=== PATIENT | female | born 1985 | race Caucasian/White ===

== ENCOUNTER → 2025-06-18 | Outpatient (CLI) | payer BC, SELFPAY ==
--- OUTSIDE RECORDS SUMMARY | 2025-06-18 17:11 | XMS RPT_ITS | CCD ---
Author Organization [facility] Care Team Providers Care District Wildlife Manager Name Role Phone Abdirahman Recinos Unavailable Unavailable Abdirahman Recinos Unavailable Abdirahman Recinos Unavailable Abdirahman Recinos Primary Care Provider Abdirahman Recinos Primary Care Provider CLAUDINE BAILEY Attending Unavailable CLAUDINE BAILEY Referring Unavailable ABDIRAHMAN RECINOS Primary Care Unavailable Abdirahman Recinos MD Primary Care Provider Alexus Ontiveros Attending Unavailabl e Care Physician, No Primary Referring Unava ilable Care Physician, No Primary Primary Care Unava ilable Medications Current Medications Medication Drug Class(es) Dates Sig (Normalized) Sig (Original) cholecalciferol, vitamin D3, (VITAMIN D3 ORAL) (1 source) cholecalciferol, vitamin D3, (VITAMIN D3 ORAL) Vitamin D3 0 Active docosahexaenoic acid/epa (FISH OIL ORAL) (1 source) docosahexaenoic acid/epa (FISH OIL ORAL) Fish Oil 0 Active nitrofurantoin, macrocrystals 25 mg / nitrofurantoin, monohydrate 75 mg oral capsule (1 source) Nitrofuran Antibacterial Start: 04-10-2024 End: 04-15-2024 take 1 capsule by mouth twice daily nitrofurantoin monohydrate and macrocrystal (MACROBID) 100 mg capsule Take 1 capsule by mouth two times a day for 5 days. 10 capsule 0 04/10/2024 04/15/2024 Active Vit B Comp and C-Vit E-FA-Kaylie-Zn 0.4 mg tab (1 source) take 1 tablet by mouth once daily Vit B Comp and C-Vit E-FA-Kaylie-Zn 0.4 mg tab Take 1 tablet by mouth once daily. 0 Active Completed/Discontinued Medications Medication Drug Class(es) Dates Sig (Normalized) Sig (Original) drospirenone / Ethinyl Estradiol (3 sources) Progestin, Estrogen Start: 03-02-2022 End: 04-10-2024 take 1 tablet by mouth once daily Drospirenone-Ethiny l Estradiol (VESTURA, 28,) 3-0.02 mg per tablet Indications: Encounter for surveillance of contraceptive pills TAKE 1 TABLET BY MOUTH EVERY DAY CONTINOUSLY DONT TAKE PLACEBOS 112 tablet 4 03/02/2022 04/10/2024 Discontinued (Other) Start: 03-02-2022 take 1 tablet by nitesh th once daily Drospirenone-Ethinyl Estradiol (VESTURA, 28,) 3-0.02 mg per tablet Indications: Encounter for surveillance of contraceptive pills TAKE 1 TABLET BY MOUTH EVERY DAY CONTINOUSLY DONT TAKE PLACEBOS 112 tablet 4 03/02/2022 Active Start: 02-24-2021 End: 03-02-2022 take 1 tablet by mouth once daily Drospirenone-Ethinyl Estradiol (VESTURA, 28,) 3-0.02 mg per tablet Indications: Encounter for surveillance of contraceptive pills TAKE 1 TABLET BY MOUTH EVERY DAY CONTINOUSLY DONT TAKE PLACEBOS 112 tablet 4 02/24/2021 03/02/2022 Discontinued Comment on above: TAKE 1 TABLET BY NITESH TH EVERY DAY CONTINOUSLY DONT TAKE PLACEBOS Problems Problem Classification Problem Date Documented Date Episodic/Chronic Abdominal pain (2 sources) Upper abdominal pain, unspecified; Translations: [Upper abdominal pain, unspecified] Onset: 07-16-2018 Episodic Biliary tract disease (2 sources) Calculus of gallbladder without cholecystitis without obstruction; Translations: [Calculus of gallbladder w/o cholecystitis w/o obstruction] Onset: 07-16-2018 Episodic Contraceptive and procreative management (1 source) Oral contraception; Translations: [Encounter for surveillance of contraceptive pills] Episodic Genitourinary symptoms and ill-defined conditions (1 source) Urinary symptoms ; Translations: [Unspecified symptoms and signs involving the genitourinary system] 04-10-2024 Episodic Mood disorders (3 sources) Premenstrual dysphoric disorder; Translations: [Premenstrual dysphoric disorder] Onset: 05-08-2024 Chronic Other endocrine disorders (2 sources) Ovarian dysfunction, unspecified; Translations: [Ovarian dysfunction, unspecified] Onset: 05-08-2024 Chronic Other endocrine disorders (1 source) Disorder of endocrine ovary; Translations: [Ovarian dysfunction, unspecified] 05-08-2024 Chronic Other screening for suspected conditions (not mental disorders or infectious disease) (2 sources) Cancer cervix screening status; Translations: [Encounter for screening for malignant neoplasm of cervix] Episodic Thyroid disorders (3 sources) Hypothyroidism, unspecified; Translations: [Hypothyroidism] Onset: 05-08-2024 Chronic Results Test Name Value Interpretation Reference Range Facility Testo,Free/Total-Femaleon Sex hormone binding globulin [Moles/Vol] 63 nmol/L 25 - 122 nmol/L [facility] Comment on above: REFERENCE INTERVAL: Sex Hormone Binding Globulin Access complete set of age- and/or gender-specific reference intervals for this test in the [facility] Test Directory (Hively). Testosterone [Mass/Vol] 20 ng/dL 9 - 55 ng/dL [facility] Comment on above: REFERENCE INTERVAL: Testosterone by Field Marketing Associate Females Premenopausal 9-55 ng/dL Postmenopausal 5-32 ng/dL INTERPRETIVE INFORMATION: Testosterone by Field Marketing Associate Free or bioavailable testosterone measurements may provide supportive information. For individuals on testosterone-suppressing hormone therapies (e.g., antiandrogens or estrogens), refer to cisgender female reference intervals. For a complete set of all established reference intervals, refer to TrackR.Hively/Tests/Pub/[id number]. This test was developed and its performance characteristics determined by [facility]. It has not been cleared or approved by the US Food and Drug Administration. This test was performed in a CLIA certified laboratory and is intended for clinical purposes. Testosterone Free DL <= 1.0 ng/dL [Mass/Vol] 2.2 pg/mL 1.3 - 9.2 pg/mL [facility] Comment on above: REFERENCE INTERVAL: Testosterone, Free by Field Marketing Associate Females Postmenopausal: 0.6 - 3.8 pg/mL INTERPRETIVE INFORMATION: Testosterone, Free by Field Marketing Associate Free testosterone concentration is calculated using total testosterone (measured by mass spectrometry) and the binding constant of testosterone and sex hormone-binding globulin (SHBG). For individuals on testosterone-suppressing hormone therapies (e.g., antiandrogens or estrogens), refer to cisgender female reference intervals. For a complete set of all established reference intervals, refer to ltd.Hively/Tests/Pub/[id number]. This test was developed and its performance characteristics determined by [facility]. It has not been cleared or approved by the US Food and Drug Administration. This test was performed in a CLIA certified laboratory and is intended for clinical purposes. Performed By: [facility] [address] [place], [place] [id number] Duck Bill Operator: Martell Flores MD, PhD CLIA Number: [id number] [facility] DHEA-sulfateon 05-10-2024 DHEA-S [Mass/Vol] 196 ug/dL 61 - 337 ug/dL [facility] Comment on above: REFERENCE INTERVAL: DHEAS Access complete set of age- and/or gender-specific reference intervals for this test in the [facility] [employer] [facility] Test Directory (Hively). Performed By: [facility] [address] [place] [address] Duck Bill Operator: Martell Flores MD, PhD CLIA Number: [id number] [facility] DHEA-SULFATEon 05-08-2024 DEHYDROEPIANDROSTERONE SULFATE (DHEA-S) (UG/DL) IN SER/ 196 ug/dL Normal 61-337 [facility] Comment on above: Result Comment: REFE RENCE INTERVAL: DHEAS Access complete set of age- and/or gender-specific reference intervals for this test in the [facility] Test Directory (Hively). Performed By: [facility] [address] [place], [place] [id number] Duck Bill Operator: Martell Flores MD, PhD CLIA Number: [id number] Performed By: #### L [id number], [id number] #### [facility] ([facility]) [address] [place] [id number] [facility] FREE T4on 05-08-2024 Free T4 [Mass/Vol] 1.18 ng/dL Normal 0.78-2.19 [facility] Comment on above: Performed By: #### L [id number], [id number] #### Pressure Tester Operator: SANDRA PARRA ([id number]) [facility] ([facility]) [address] [place], [place] [id number] Free T3 [Mass/Vol]on Interpretation and review of laboratory results Normal [facility] Free T4 [Mass/Vol]on Free T4 Dialysis [Mass/Vol] 1.18 ng/dL 0.78 - 2.19 ng/dL [facility] Interpretation and review of laboratory results Normal [facility] No Panel Informationon 05-08 [facility] PROGESTERONEon 05-08-2024 PROGESTERONE 10.5 ng/mL Normal [facility] Comment on above: Result Comment: ALEXA Vasquez COMMENTS: *Females-Ovulatory* Follicular: 0.1 - 2.0 Periovulatory: 0.4 - 4.5 Mid Luteal: 5.2 - 22.7 Luteal: 1.4 - 16.6 * Females* 1st Trimester (4-12 weeks gestation): 6.6 - 40.3 2nd Trimester (13-24 weeks gestation): 9.7 - 62.3 3rd Trimester (25-36 weeks gestation): 24.5 - 334.0 Post Menopausal Females: 0.2 - 1.0 Normal Males: 0.2 - 1.5 Performed By: #### L [id number], [id number], [id number] #### Pressure Tester Operator: MARY ZAPATA ([id number]) [facility] ([facility]) [address] [place] [address] Progesteroneon 05-08-2024 Progesterone [Mass/Vol] 10.5 ng/mL [facility] *Females-Ovulatory* Follicular: 0.1 - 2.0 Periovulatory: 0.4 - 4.5 Mid Luteal: 5.2 - 22.7 Luteal: 1.4 - 16.6 * Females* 1st Trimester (4-12 weeks gestation): 6.6 - 40.3 2nd Trimester (13-24 weeks gestation): 9.7 - 62.3 3rd Trimester (25-36 weeks gestation): 24.5 - 334.0 Post Menopausal Females: 0.2 - 1.0 Normal Males: 0.2 - 1.5 [facility] T3on 05-08-2024 T3 [Mass/Vol] 146 ng/dL 97 - 169 ng/dL [facility] T3 (THYROID HORMONE)on 05-08 T3, TOTAL 146 ng/dL Normal 97-169 [facility] Comment on above: Performed By: #### Percy [id number], [id number], [id number] #### Pressure Tester Operator: MARY ZAPATA ([id number]) [facility] ([facility]) [address] T3 FREEon 05-08-2024 Free T3 [Mass/Vol] 4.37 pg/mL Normal 2.77-5.27 [facility] Comment on above: Performed By: #### L [id number], [id number], [id number] #### Pressure Tester Operator: MARY ZAPATA ([id number]) [facility] ([facility] [address] T3 [Mass/Vol]on 05-08-2024 Interpretation and review of laboratory results Normal [facility] T3, freeon 05-08-2024 Free T3 [Mass/Vol] 4.37 pg/mL 2.77 - 5. 27 pg/mL [facility] TESTOSTERONE, FREE/TOTAL BY COOKER LOADER (SENDOUT)on 05-08-2024 SEX HORMONE BINDING GLOBULIN 63 nmol/L Normal 25-122 [facility] Comment on above: Result Comment: REFE RENCE INTERVAL: Sex Hormone Binding Globulin Access complete set of age- and/or gender-specific reference intervals for this test in the [facility] Test Directory (Hively). Performed By: #### L [id number], [id number] #### [facility] ([facility]) [address] [place] [phone] [facility] TESTOSTERONE BY COOKER LOADER 20 ng/dL Normal 9-55 [facility] Comment on above: Result Comment: REFE RENCE INTERVAL: Testosterone by Field Marketing Associate Females Premenopausal 9-55 ng/dL Postmenopausal 5-32 ng/dL INTERPRETIVE INFORMATION: Testosterone by Field Marketing Associate Free or bioavailable testosterone measurements may provide supportive information. For individuals on testosterone-suppressing hormone therapies (e.g., antiandrogens or estrogens), refer to cisgender female reference intervals. For a complete set of all established reference intervals, refer to ltd.Hively/Tests/Pub/[id number]. This test was developed and its performance characteristics determined by [facility]. It has not been cleared or approved by the US Food and Drug Administration. This test was performed in a CLIA certified laboratory and is intended for clinical purposes. Performed By: #### L [id number], [id number] #### [facility] ([facility]) [address] [place] [address] TESTOSTERONE, FREE BY COOKER LOADER 2.2 pg/mL Normal 1.3-9.2 [facility] Comment on above: Result Comment: REFE RENCE INTERVAL: Testosterone, Free by Field Marketing Associate Females Postmenopausal: 0.6 - 3.8 pg/mL INTERPRETIVE INFORMATION: Testosterone, Free by Field Marketing Associate Free testosterone concentration is calculated using total testosterone (measured by mass spectrometry) and the binding constant of testosterone and sex hormone-binding globulin (SHBG). For individuals on testosterone-suppressing hormone therapies (e.g., antiandrogens or estrogens), refer to cisgender female reference intervals. For a complete set of all established reference intervals, refer to TrackR.Hively/Tests/Pub/[id number]. This test was developed and its performance characteristics determined by [facility]. It has not been cleared or approved by the US Food and Drug Administration. This test was performed in a CLIA certified laboratory and is intended for clinical purposes. Performed By: [facility] [address] [place] [address] Duck Bill Operator: Martell Flores MD, PhD CLIA Number: [id number] Performed By: #### L [id number], [id number] #### [facility] ([facility]) [address] [place] [address] THYROID STIMULATING HORMONEo n 05-08-2024 THYROID STIMULATING HORMONE 1.508 uIU/mL Normal 0.465-4.680 [facility] Comment on above: Performed By: #### L [id number], [id number] #### Pressure Tester Operator: SANDRA PARRA ([id number]) [facility] [address] [place] [address] TSHon 05-08-2024 TSH Qn 1.508 m[IU]/L [facility] h TSH Qnon 05-08-2024 Interpretation and review of laboratory results Normal [facility] UA DIP, URINE (POC)on 2023 BILIRUBIN UA (POCT) Negative Negative [facility] CLARITY UA (POCT) Cloudy [facility] COLOR UA (POCT) Yellow [facility] GLUCOSE UA (POCT) Negative Negative mg/dL [facility] Hemoglobin Ql (U) Large Abnormal Negative [facility] Interpretation and review of laboratory results Abnormal [facility] KETONE UA (POCT) Negative Negative mg/dL [facility] LEUKOCYTES UA (POCT) Large Abnormal Negative [facility] NITRITE UA (POCT) Negative Negative [facility] PH UA (POCT) 6.5 4.5 - 8.0 [facility] Protein Ql (U) 100 mg/dL Abnormal Negative [facility] SPECIFIC GRAVITY UA (POCT) 1.020 1.005 - 1.030 [facility] UROBILINOGEN UA (POCT) 0.2 Klaudia l E.U./dL [facility] Location:[facility], [address] [place] [address] POINT OF CARE [facility] US Abdomen Completeon 2017 US Abdomen Complete Patient Name: CARMEN YAN Ultrasound Exam Date/Time 07/16/2018 13:54:18 EST Exam US Abdomen Complete Ordering Physician ABDIRAHMAN RECINOS Accession Number [id number] CPT4 Codes 45691 () Reason For Exam pain of upper abdomen Report ULTRASOUND ABDOMEN COMPLETE EXAM DATE AND TIME: 07/16/2018 1:54 PM EST INDICATION: 32 years Female with upper abdominal pain COMPARISON: none TECHNIQUE: Complete ultrasound of abdomen FINDINGS: Grayscale and color Doppler flow signal technique utilized. Liver: Normal echogenicity, size and contours. No focal lesion identified. Gallbladder: Multiple stones.No Carbajal's sign observed. Common bile duct: 2 mm \X09\\X09\ Pancreas: The visualized portions of the pancreatic head and body are unremarkable. The remainder of the pancreas is obscured by bowel gas Right kidney: Measurement 10.2 cm. Normal parenchymal echogenicity without solid mass or hydronephrosis. . Left kidney: Measurement 11.1 cm. Normal parenchymal echogenicity without solid mass or hydronephrosis. Spleen: Measurement: 8.4 cm. No acute process seen.. Aorta and Inferior vena cava: Unremarkable as seen.. Ascites: None IMPRESSION: Cholelithiasis. No definite acute process seen. Report Dictated on Workstation: [id number] Final Dictating Physician: MD GAYTAN JOHN Signed Date and Time: 07/17/2018 6:06 am Signed by: MD GAYTAN JOHN Transcribed Date and Time: 07/17/2018 6:08 Normal [facility] PROGRESSon 11-08-2017 PROGRESS HNO ID: [id number]: Francoise Bobo: (none)Author Type: PhysicianType: Progress NotesFiled: 11/08/2017 5:30 PMNote Text:SUBJECTIVEEmily Philippe Yan is a 32 year old woman who presents for her annualexam: Last pap 10/14Patient's last menstrual period was 10/13/2017..Medicatio ns, Allergies, Surgeries, Family History updated and smokingstatus updated. Discussed health maintenance, including regular aerobicexercise, low fat diet, and periodic exams.HISTORIESFAMILY HISTORYProblem Relation Age of Onset- Colon Cancer Other 51PAST MEDICAL HISTORYDiagnosis Date- MigrainePAST SURGICAL HISTORYProcedure Laterality Date- NONEThere is no problem list on file for this patient.ALLERGIESNo Known AllergiesCurrent Outpatient Prescriptions:Drospir enone-Ethinyl Estradiol (GERALDA, 28,) 3-0.02 mg per tablet Take 1tablet by mouth once daily.No current facility-administered medications for this visit.REVIEW OF SYSTEMSGENERAL: No weight loss, malaise or feversHEENT: No changes in hearing or visionNECK: Negative for lumps, goiter, pain and significant neck swellingRESPIRATORY: Negative for cough, wheezing, dyspnea or shortness of breathCARDIOVASCULAR: Negative for chest pain or palpitationsGI: Negative for abdominal discomfort, blood in stools or black stools,change in bowel habit, diarrhea, nausea, vomiting, constipationGU: No history of dysuria, frequency or incontinenceGYN: Negative for abnormal vaginal bleeding, abnormal vaginal discharge orBreast symptomsENDOCRINE: Negative for cold or heat intolerance, polyuria, polydipsia andgoiterNEURO: No history of headaches, syncope, paralysis, seizures or tremorsOBJECTIVEBP 118/80 Ht 5' 5 (1.65m) Wt 175 lb (79.4kg) LMP 10/13/2017 BMI29.12 kg/(m2).HEENT: Within normal limitsNECK: Supple, no thyromegalyBREASTS: No masses, no nipple dischargeHEART: Regular rate and rhythm without murmur, rub, or gallopLUNGS: Clear bilaterally to auscultationABDOMEN: No masses, non tender, no hernias, no hepatosplenomegalyPEL DIANELYS: EGBUS: No lesions, normal appearance VAGINA: No discharge, + blood, no lesions CERVIX: No lesions, non tender UTERUS: Anteverted, normal size, non tender ADNEXA: Non tender, no massesRECTOVAGINAL: Not examinedEXTREMITIES: No edema, no calf tendernessNEUROLOGICA L: Grossly intactASSESSMENT/PLAN :1. Encounter for gynecological examination (general) (routine) withoutabnormal findings - ICD9: V72.31, ICD10: Z01.419 (primary diagnosis)- Completed pelvic and breast exam- Encouraged monthly BSE- Follow up for annual exam in one year.- THINPREP(R) PAP TEST W/RFX HPV MRNA E6/E7 ([facility])2. Encounter for surveillance of contraceptive pills - ICD9: V25.41,ICD10: Z30.41- DROSPIRENONE-ETHINYL ESTRADIOL 3 MG-0.02 MG (24) Rosario Granados MD Normal [facility] Vital Signs Date Time Vital Sign Value Performing Clinician Brenda sellers 04-10-2024 14:18-0400 Body height 165.1 cm Kalyn Murray APRN.CNP Work Phone: [facility] 04-10-2024 14:18-0400 Body mass index (BMI) [Ratio] 24.71 kg/m2 Kalyn uMrray APRN.CNP Work Phone: [facility] 04-10-2024 14:18-0400 Body temperature 97.59 [degF] Kalyn Brigotti MANAGER TEST.FRONT OFFICE HELP Work Phone: [facility] 04-10-2024 14:18-0400 Body weight 67.35 kg Kalyn Brigotti MANAGER TEST.FRONT OFFICE HELP Work Phone: [facility] 04-10-2024 14:18-0400 Diastolic blood pressure 78 mm[Hg] Kalyn Brigotti MANAGER TEST.FRONT OFFICE HELP Work Phone: [facility] 04-10-2024 14:18-0400 Heart rate 84 /min Kalyn Brigotti MANAGER TEST.FRONT OFFICE HELP Work Phone: [facility] 04-10-2024 14:18-0400 Respiratory rate 18 /min Kalyn Brigotti MANAGER TEST.FRONT OFFICE HELP Work Phone: [facility] 04-10-2024 14:18-0400 SaO2% (BldA) [Mass fraction] 97 % Kalyn Brigotti MANAGER TEST.FRONT OFFICE HELP Work Phone: [facility] 04-10-2024 14:18-0400 Systolic blood pressure 120 mm[Hg] Kalyn Brigotti MANAGER TEST.FRONT OFFICE HELP Work Phone: [facility] 03-02-2022 16:35-0400 Body height 165.1 cm Francoise Granados MD Work Phone: [facility] 03-02-2022 16:35-0400 Body weight 73.03 kg Francoise Granados MD Work Phone: [facility] 03-02-2022 16:35-0400 Diastolic blood pressure 80 mm[Hg] Francoise Granados MD Work Phone: [facility] 03-02-2022 16:35-0400 Systolic blood pressure 112 mm[Hg] Francoise Granados MD Work Phone: [facility] Encounters Encounter Date Encounter Type Care Provider Facility Start: 06-18-2025 ambulatory Alexus Ontiveros Fa cility:[facility] Start: 05-08-2024 End: 08-07-2024 ambulatory [facility] Comment on above: Hypothyroidism, unsp ecified (Primary Dx); Premenstrual dysphoric disorder; Ovarian dysfunction, unspecified Start: 04-10-2024 End: 04-10-2024 Patient encounter procedure Kalyn Percy Murray APRN.CNP Work Phone: [facility] Comment on above: UTI symptoms (Primar y Dx) Start: 03-02-2022 End: 03-02-2022 Female genitalia finding Francoise Granados MD Work Phone: [employer] [facility] Start: 03-02-2022 End: 03-02-2022 Patient encounter procedure Francoise Granados MD Work Phone: [facility] Comment on above: Gynecologic exam nor mal (Primary Dx); Encounter for surveillance of contraceptive pills; Cervical cancer screening; Encounter for Pap smear of cervix with HPV DNA cotesting Start: 07-16-2018 Patient encounter procedure Abdirahman Recinos [facility] Procedures Date Procedure Procedure Detail Performing Clinician Start: 05-08-2024 Thyrotropin [Units/v olume] in Serum or Plasma Summer Shantelle Acuna MD Work Phone: Start: 04-10-2024 Urnls dip stick/tabl et rgnt auto w/o microscopy [facility] Provider Start: 03-02-2022 Adult depression scr eening assessment Francoise Granados MD Work Phone: Plan of Treatment Date Care Activity Detail Author Start: 2061 RSV Immunization for Adults (1 - 1-dose 75+ series) RSV Immunization for Adults (1 - 1-dose 75+ series) [facility] Start: 2036 Zoster Vaccines (1 o f 2) Zoster Vaccines (1 of 2) [facility] Start: 03-02-2027 Screening for malign ant neoplasm of cervix Cervical Cancer Screening [facility] Start: 02-24-2026 PAP TESTING PAP TESTING [facility] Start: 05-08-2025 Thyroid stimulating hormone measurement TSH Level [facility] Start: 04-28-2024 COVID-19 Vaccine ( season) COVID-19 Vaccine () [facility] Start: 04-28-2024 Influenza vaccination Influenza Vacc ine (#1) [facility] Start: 04-28-2023 Covid-19 Vaccine ( season) Covid-19 Vaccine () [facility] Start: 03-02-2023 Adult depression screening assessment DEPRESSION SCREENING [facility] Start: 04-28-2022 Influenza vaccination INFLUENZA (#1) [facility] Start: 2016 HPV TESTING HPV TESTING [facility] Start: 2016 Screening for malign ant neoplasm of cervix [facility] Start: 2007 Screening for malign ant neoplasm of cervix Pap Smear [facility] Start: 2005 DTaP/Tdap/Td Vaccine s (1 - Tdap) DTaP/Tdap/Td Vaccines (1 - Tdap) [facility] Start: 2005 Hepatitis B Vaccine (1 of 3 - 19+ 3-dose series) Hepatitis B Vaccine (1 of 3 - 19+ 3-dose series) [facility] Start: 2005 Hepatitis B Vaccines (1 of 3 - 19+ 3-dose series) Hepatitis B Vaccines (1 of 3 - 19+ 3-dose series) [facility] Start: 2005 Urine microalbumin profile [facility] Start: 2004 Anxiety Screening Anxiety Screening [facility] Start: 2004 Depression Screening Depression Scre [facility] Start: 2004 HEPATITIS C SCREENING HEPATITIS C [facility] Start: 2004 Hepatitis C screening Hepatitis C [facility] Start: 2004 HIV SCREENING HIV SCREENING [facility] Start: 2004 HIV screening HIV Screening [facility] Start: 1999 Varicella vaccination Varicell a Vaccines (1 of 2 - 13+ 2-dose series) [facility] Start: 1998 Depression Monitoring Depression Mon itoring [facility] Start: 1987 MMR Vaccines (1 of 1 - Standard series) MMR Vaccines (1 of 1 - Standard series) [facility] Start: 02-03-1987 COVID-19 VACCINE (#1) COVID-19 VACCI NE (#1) [facility] Start: 1986 HIV screening HIV Screening [facility] timbo Bacteria identified in Urine by Culture URINE CULTURE Microbiology Routine UTI symptoms Ordered: 04/10/[address] [facility] Work Phone: Comment on above: Ordered: 04/10/2024 HUMAN PAPILLOMA VIRU S, MRNA HUMAN PAPILLOMA VIRUS, MRNA Lab Routine Encounter for Pap smear of cervix with HPV DNA cotesting Ordered: 03/02/2022 [employer] [facility] Work Phone: Comment on above: Ordered: 03/02/2022 OUTSIDE PROCEDURE SCAN OUTSIDE P ROCEDURE SCAN Procedures Ordered: 05/08/2024 [facility] Comment on above: Ordered: 05/08/2024 PAP REFLEX HPV MRNA WHEN ASCUS PAP REFLEX HPV MRNA WHEN ASCUS Lab Routine Gynecologic exam normal Cervical cancer screening Ordered: 03/02/2022 [employer] [facility] Work Phone: Comment on above: Ordered: 03/02/2022 [facility] Immunizations Immunization Date Immunization Notes Care Provider [facility] 08-19-2017 Influenza, injectabl e, Madin Cailin Canine Kidney, preservative free, quadrivalent Francoise Granados MD Work Phone: [facility] 08-19-2017 influenza virus vacc ine, unspecified formulation Kalyn Murray APRN.CNP Work Phone: [facility] Payers Date Payer Category Payer Self-pay 2023 [facility] - [facility] [id number] 2023 Unknown [id number] 2023 Unknown 1986 Unknown [id number] Unknown [id number] Social History Date Type Detail Facility Start: 11-07-2017 End: 04-10-2024 Tobacco smoking status NHIS Never smoked tobacco [facility] Start: 11-07-2017 End: 04-10-2024 Tobacco use and exposure Smokeless tobacco non-user [facility] Start: 1986 Sex Assigned At Not on file [facility] Start: 02-20-2022 End: 03-02-2022 Exposure to SARS-CoV-2 (event) Not sure [facility] Start: 09-24-2022 End: 04-10-2024 History of Social function [facility] Start: 09-24-2022 End: 04-10-2024 Tobacco use panel [facility] Adult Depression Screening Assessment 0 [facility] Tobacco smoking stat us [facility] Tobacco smoking consumption unknown [facility] Start: 03-28-2022 Sex Female (finding) [facility] Instructions 04-10-2024 Patient Instructions Note Date & Type Note Facility 04-10-2024 Instructions Kalyn Murray APRN.IAN - 04/10/2024 2:37 PM EDT - Macrobid twice daily for 7 days - Will call if need to stop or change your antibiotics based on culture - If your symptoms continue after treatment or worsen please follow up with your primary care doctor or [facility] - Follow up with your primary care doctor in 2-3 weeks to make sure there is no longer blood in your urine - ER if you develop fever, chills, back pain, unable to urinate or severe or concerning symptoms documented in this encounter [facility] History of Present illness Narrative 04-10-2024 Kalyn Murray APRN.CNP - 04/10/2024 2:16 PM EDT Note Date & Type Note Facility 04-10-2024 History of Presen t illness Narrative Patient presents with: UTI: Going on for 4 days, frequency,cloudy, light pink when wiping, right lower back pain that travels to the abdomen that's achy, pain level 4/10, has increased fluids with electrolytes, Symptoms started 4 days ago and are getting slightly worse Her last UTI was several years ago UTI Associated symptoms include frequency, hematuria and urgency. Pertinent negatives include no chills and no flank pain. Review of Systems Constitutional: Negative for chills and fever. Genitourinary: Positive for dysuria, frequency, hematuria, pelvic pain (mild) and urgency. Negative for flank pain. Physical Exam Vitals reviewed. Constitutional: Appearance: Normal appearance. Cardiovascular: Rate and Rhythm: Normal rate and regular rhythm. Heart sounds: Normal heart sounds. Pulmonary: Effort: Pulmonary effort is normal. No respiratory distress. Breath sounds: Normal breath sounds. No wheezing, rhonchi or rales. Abdominal: Palpations: Abdomen is soft. Tenderness: There is no abdominal tenderness. There is no right CVA tenderness or left CVA tenderness. Neurological: Mental Status: She is alert. ASSESSMENT/PLAN: 1. UTI symptoms - ICD9: 788.99, ICD10: R39.9 - URINE CULTURE - UA showed blood, pro and cynthia - Will start treatment with macrobid - Send urine culture - Will notify patient if need to stop or change antibiotics based on culture results - Reviewed follow up instructions and symptoms to present to ER - She verbalized understanding and agreement with this plan. Kalyn Murray APRN.IAN documented in this encounter [facility] Progress note 03-02-2022 Note Date & Type Note Facility 03-02-2022 Note HNO ID: [id number] Author: Francoise Granados MD Service: ? Author Type: Physician Type: Progress Notes Filed: 03/02/2022 5:00 PM Note Text: SUBJECTIVE Carmen Yan is a 36 year old woman who presents for her annual exam: Last pap 02/15, Mammo never Patient's last menstrual period was 07/07/2019 (approximate).. Medications, Allergies, Surgeries, Family History updated and smoking status updated. Discussed health maintenance, including regular aerobic exercise, low fat diet, and periodic exams. HISTORIES FAMILY HISTORY Problem Relation Age of Onset - Colon Cancer Other 50 - Heart disease Father - Diabetes Father - other (liver disease) Father PAST MEDICAL HISTORY Diagnosis Date - Migraine PAST SURGICAL HISTORY Procedure Laterality Date - NONE There is no problem list on file for this patient. ALLERGIES No Known Allergies Current Outpatient Medications Medication Sig - Drospirenone-Ethinyl Estradiol (VESTURA, 28,) 3-0.02 mg per tablet TAKE 1 TABLET BY MOUTH EVERY DAY CONTINOUSLY DONT TAKE PLACEBOS No current facility-administered medications for this visit. REVIEW OF SYSTEMS GENERAL: No weight loss, malaise or fevers HEENT: No changes in hearing or vision NECK: Negative for lumps, goiter, pain and significant neck swelling RESPIRATORY: Negative for cough, wheezing, dyspnea or shortness of breath CARDIOVASCULAR: Negative for chest pain or palpitations GI: Negative for abdominal discomfort, blood in stools or black stools, change in bowel habit, diarrhea, nausea, vomiting, constipation : No history of dysuria, frequency or incontinence HADOOP JAVA DEVELOPER: Negative for abnormal vaginal bleeding, abnormal vaginal discharge or Breast symptoms ENDOCRINE: Negative for cold or heat intolerance, polyuria, polydipsia and goiter NEURO: No history of headaches, syncope, paralysis, seizures or tremors OBJECTIVE BP 112/80 Ht 5' 5 (1.65m) Wt 161 lb (73.0kg) LMP 07/07/2019 BMI 26.79 kg/(m2). HEENT: Within normal limits NECK: Supple, no thyromegaly BREASTS: No masses, no nipple discharge HEART: Regular rate and rhythm without murmur, rub, or gallop LUNGS: Clear bilaterally to auscultation ABDOMEN: No masses, non tender, no hernias, no hepatosplenomegaly PELVIC: EGBUS: No lesions, normal appearance VAGINA: No discharge, no blood, no lesions CERVIX: No lesions, non tender; friable UTERUS: Anteverted, normal size, non tender ADNEXA: Non tender, no masses RECTOVAGINAL: Not examined EXTREMITIES: No edema, no calf tenderness NEUROLOGICAL: Grossly intact ASSESSMENT/PLAN: 1. Gynecologic exam normal - ICD9: V72.31, ICD10: Z01.419 (primary diagnosis) - Completed pelvic and breast exam - Encouraged monthly BSE - Follow up for annual exam in one year. - PAP REFLEX HPV MRNA WHEN ASCUS 2. Encounter for surveillance of contraceptive pills - ICD9: V25.41, ICD10: Z30.41 - DROSPIRENONE 3 MG-ETHINYL ESTRADIOL 0.02 MG TABLET 3. Cervical cancer screening - ICD9: V76.2, ICD10: Z12.4 - PAP REFLEX HPV MRNA WHEN ASCUS 4. Encounter for Pap smear of cervix with HPV DNA cotesting - ICD9: V76.2, ICD10: Z12.4 - HUMAN PAPILLOMA VIRUS, MRNA MD Alexus Marie [facility] History of Present illness Narrative 03-02-2022 Francoise Granados MD - 03/02/2022 4:34 PM EDT Note Date & Type Note Facility 03-02-2022 History of Presen t illness Narrative SUBJECTIVE Carmen Yan is a 36 year old woman who presents for her annual exam: Last pap 02/15, Mammo never Patient's last menstrual period was 07/07/2019 (approximate).. Medications, Allergies, Surgeries, Family History updated and smoking status updated. Discussed health maintenance, including regular aerobic exercise, low fat diet, and periodic exams. HISTORIES FAMILY HISTORY Problem Relation Age of Onset Colon Cancer Other 50 Heart disease Father Diabetes Father other (liver disease) Father PAST MEDICAL HISTORY Diagnosis Date Migraine PAST SURGICAL HISTORY Procedure Laterality Date NONE There is no problem list on file for this patient. ALLERGIES No Known Allergies Current Outpatient Medications Medication Sig Drospirenone-Ethinyl Estradiol (VESTURA, 28,) 3-0.02 mg per tablet TAKE 1 TABLET BY MOUTH EVERY DAY CONTINOUSLY DONT TAKE PLACEBOS No current facility-administered medications for this visit. REVIEW OF SYSTEMS GENERAL: No weight loss, malaise or fevers HEENT: No changes in hearing or vision NECK: Negative for lumps, goiter, pain and significant neck swelling RESPIRATORY: Negative for cough, wheezing, dyspnea or shortness of breath CARDIOVASCULAR: Negative for chest pain or palpitations GI: Negative for abdominal discomfort, blood in stools or black stools, change in bowel habit, diarrhea, nausea, vomiting, constipation : No history of dysuria, frequency or incontinence HADOOP JAVA DEVELOPER: Negative for abnormal vaginal bleeding, abnormal vaginal discharge or Breast symptoms ENDOCRINE: Negative for cold or heat intolerance, polyuria, polydipsia and goiter NEURO: No history of headaches, syncope, paralysis, seizures or tremors OBJECTIVE BP 112/80 Ht 5' 5 (1.65m) Wt 161 lb (73.0kg) LMP 07/07/2019 BMI 26.79 kg/(m^2). HEENT: Within normal limits NECK: Supple, no thyromegaly BREASTS: No masses, no nipple discharge HEART: Regular rate and rhythm without murmur, rub, or gallop LUNGS: Clear bilaterally to auscultation ABDOMEN: No masses, non tender, no hernias, no hepatosplenomegaly PELVIC: EGBUS: No lesions, normal appearance VAGINA: No discharge, no blood, no lesions CERVIX: No lesions, non tender; friable UTERUS: Anteverted, normal size, non tender ADNEXA: Non tender, no masses RECTOVAGINAL: Not examined EXTREMITIES: No edema, no calf tenderness NEUROLOGICAL: Grossly intact ASSESSMENT/PLAN: 1. Gynecologic exam normal - ICD9: V72.31, ICD10: Z01.419 (primary diagnosis) - Completed pelvic and breast exam - Encouraged monthly BSE - Follow up for annual exam in one year. - PAP REFLEX HPV MRNA WHEN ASCUS 2. Encounter for surveillance of contraceptive pills - ICD9: V25.41, ICD10: Z30.41 - DROSPIRENONE 3 MG-ETHINYL ESTRADIOL 0.02 MG TABLET 3. Cervical cancer screening - ICD9: V76.2, ICD10: Z12.4 - PAP REFLEX HPV MRNA WHEN ASCUS 4. Encounter for Pap smear of cervix with HPV DNA cotesting - ICD9: V76.2, ICD10: Z12.4 - HUMAN PAPILLOMA VIRUS, MRNA MD Alexus Marie documented in this encounter [facility] Evaluation note Note Date & Type Note Facility Evaluation note Diagnosis Gynecologic exam normal- Primary Encounter for surveillance of contraceptive pills Surveillance of previously prescribed contraceptive pill Cervical cancer screening Screening for malignant neoplasm of the cervix Encounter for Pap smear of cervix with HPV DNA cotesting documented in this encounter [facility] Evaluation note Note Date & Type Note Facility Evaluation note Diagnosis UTI symptoms- Primary Other symptoms involving urinary system documented in this encounter [facility] Evaluation note Note Date & Type Note Facility Evaluation note Diagnosis Hypothyroidism, unspecified- Primary Premenstrual dysphoric disorder Premenstrual tension syndromes Ovarian dysfunction, unspecified documented in this encounter [facility] Summary Purpose Family History No Family History Records FoundNo Family History Records FoundNo Family History Records FoundNo Family History Records FoundNo Family History Records Found Advance Directives No Advanced Directives Records FoundNo Advanced Directives Records FoundNo Advanced Directives Records FoundNo Advanced Directives Records FoundNo Advanced Directives Records Found Additional Source Comments INFORMATION SOURCE (unrecogn ized section and content) DATE CREATED AUTHOR 02/16/2018 [facility] DATE CREATED AUTHOR AUTHOR'S ORGANIZ ATION 08/06/2018 [facility] DATE CREATED AUTHOR AUTHOR'S ORGANIZ ATION 03/03/2022 [facility] DATE CREATED AUTHOR AUTHOR'S ORGANIZ ATION 05/16/2024 [facility] DATE CREATED AUTHOR AUTHOR'S ORGANIZ ATION 06/13/2025 [facility] Source Comments (unrecognize d section and content) In the event this informatio n is protected by the Federal Confidentiality of Alcohol and Drug Abuse Patient Records regulations: The Federal rules restrict any use of the information to criminally investigate or prosecute any alcohol or drug abuse patient.[facility] the event this information is protected by the Federal Confidentiality of Alcohol and Drug Abuse Patient Records regulations: The Federal rules restrict any use of the information to criminally investigate or prosecute any alcohol or drug abuse patient.[facility] Reason for Visit (unrecogniz ed section and content) 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 UTI Going on for 4 days, frequency,cloudy, light pink when wiping, right lower back pain that travels to the abdomen that's achy, pain level 4/10, has increased fluids with electrolytes, LMS was 03/21/24 Care Teams (unrecognized sec tion and content) District Wildlife Manager Relationship Specialty Start Date End Date Abdirahman Recinos [address] [place] [address] PCP - General Internal Medicine 11/07/17 District Wildlife Manager Relationship Specialty Start Date End Date Abdirahman Recinos [address] [place], [place] [id number] PCP - General Internal Medicine 11/07/17 District Wildlife Manager Relationship Specialty Start Date End Date Abdirahman Recinos MD [address] [facility] [address] [place] [id number] PCP - General 05/01/17 FOR RECORDS PERTAINING TO PATIENTS WHO ARE OR HAVE BEEN ENROLLED IN A CHEMICAL DEPENDENCY/SUBSTANCEABUSE PROGRAM, SOME INFORMATION MAY BE OMITTED. This clinical summary was aggregated from multiple sources. Caution should be exercised in using it in the provision of clinical care. This summary normalizes information from multiple sources, and as a consequence, information in this document may materially change the coding, format and clinical context of patient data. In addition, data may be omitted in some cases. CLINICAL DECISIONS SHOULD BE BASED ON THE PRIMARY CLINICAL RECORDS. [facility] [employer] [facility]. provides no warranty or guarantee of the accuracy or completeness of information in this document.
--- OUTSIDE RECORDS SUMMARY | 2025-06-18 17:11 | XMS RPT_ITS | CCD ---
Author Organization [facility] Care Team Providers Care Chief Yeoman Name Role Phone Abdirahman Recinos Unavailable Unavailable [...] [Moles/Vol] 63 nmol/L 25 - 122 nmol/L [facility] Comment on above: REFERENCE INTERVAL: Sex Hormone Binding Globulin Access complete set of age- and/or gender-specific reference intervals for this test in the [facility] Test Directory ([facility]). Testosterone [Mass/Vol] 20 ng/dL 9 - 55 ng/dL [facility] Comment on above: REFERENCE INTERVAL: Testosterone by Director Advanced Females Premenopausal 9-55 ng/dL Postmenopausal 5-32 ng/dL INTERPRETIVE INFORMATION: Testosterone by Director Advanced Free or bioavailable testosterone measurements may provide supportive information. For individuals on testosterone-suppressing hormone therapies (e.g., antiandrogens or estrogens), refer to cisgender female reference intervals. For a complete set of all established reference intervals, refer to [employer]/Tests/Pub/[id number]. This test was developed and its performance characteristics determined by [facility]. It has not been cleared or approved by the US Food and Drug Administration. This test was performed in a CLIA certified laboratory and is intended for clinical purposes. Testosterone Free DL <= 1.0 ng/dL [Mass/Vol] 2.2 pg/mL 1.3 - 9.2 pg/mL [facility] Comment on above: REFERENCE INTERVAL: Testosterone, Free by Director Advanced Females Postmenopausal: 0.6 - 3.8 pg/mL INTERPRETIVE INFORMATION: Testosterone, Free by Director Advanced Free testosterone concentration is calculated using total testosterone (measured by mass spectrometry) and the binding constant of testosterone and sex hormone-binding globulin (SHBG). For individuals on testosterone-suppressing hormone therapies (e.g., antiandrogens or estrogens), refer to cisgender female reference intervals. For a complete set of all established reference intervals, refer to ltd.[facility]y/Tests/Pub/[id number]. This test was developed and its performance characteristics determined by [facility]. It has not been cleared or approved by the US Food and Drug Administration. This test was performed in a CLIA certified laboratory and is intended for clinical purposes. Performed By: [facility] [address] [place], [place] [id number] Geomorphologist: Martell Flores MD, PhD CLIA Number: [id number] [facility] DHEA-sulfateon 05-10-2024 DHEA-S [Mass/Vol] 196 ug/dL 61 - 337 ug/dL [facility] Comment on above: REFERENCE INTERVAL: DHEAS Access complete set of age- and/or gender-specific reference intervals for this test in the [facility] ([facility]). Performed By: [email or web address] [address] [place] [address] Geomorphologist: Martell Flores MD, PhD CLIA Number: [id number] [facility] DHEA-SULFATEon 05-08-2024 DEHYDROEPIANDROSTERONE SULFATE (DHEA-S) (UG/DL) IN SER/ 196 ug/dL Normal 61-337 [facility] Comment on above: Result Comment: REFE RENCE INTERVAL: DHEAS Access complete set of age- and/or gender-specific reference intervals for this test in the [facility] ([facility]). Performed By: [facility] [address] [place], [place] [id number] Geomorphologist: Martell Flores MD, PhD CLIA Number: [id number] Performed By: #### L [id number], [id number] #### [facility] ([facility]) [address] [place] [phone] [facility] FREE T4on 05-08-2024 Free T4 [Mass/Vol] 1.18 ng/dL Normal 0.78-2.19 [facility] Comment on above: Performed By: #### L [id number], [id number] #### Sales Representative [employer]: SANDRA PARRA ([id number]) [facility] ([facility]) [address] [place], [place] [id number] Free T3 [Mass/Vol]on Interpretation and review of laboratory results Normal [facility] Free T4 [Mass/Vol]on Free T4 Dialysis [Mass/Vol] 1.18 ng/dL 0.78 - 2.19 ng/dL [facility] Interpretation and review of laboratory results Normal [facility] No Panel Informationon 05-08 [facility] PROGESTERONEon 05-08-2024 PROGESTERONE 10.5 ng/mL Normal [facility] Comment on above: Result Comment: [...] - 1.5 Performed By: #### L [id number], [id number], [id number] #### Sales Representative [employer]: MARY ZAPATA ([id number]) [facility] ([facility]) [address] [place] [address] Progesteroneon 05-08-2024 Progesterone [Mass/Vol] 10.5 ng/mL [facility] *Females-Ovulatory* Follicular: 0.1 - 2.0 Periovulatory: 0.4 - 4.5 Mid Luteal: 5.2 - 22.7 Luteal: 1.4 - 16.6 * Females* 1st Trimester (4-12 weeks gestation): 6.6 - 40.3 2nd Trimester (13-24 weeks gestation): 9.7 - 62.3 3rd Trimester (25-36 weeks gestation): 24.5 - 334.0 Post Menopausal Females: 0.2 - 1.0 Normal Males: 0.2 - 1.5 [facility] T3on 05-08-2024 T3 [Mass/Vol] 146 ng/dL 97 - 169 ng/dL [facility] T3 (THYROID HORMONE)on 05-08 T3, TOTAL 146 ng/dL Normal 97-169 [facility] Comment on above: Performed By: #### Percy [id number], [id number], [id number] #### Sales Representative [employer]: MARY ZAPATA ([id number]) [facility] ([facility]) [address] T3 FREEon 05-08-2024 Free T3 [Mass/Vol] 4.37 pg/mL Normal 2.77-5.27 [facility] Comment on above: Performed By: #### L [id number], [id number], [id number] #### Sales Representative [employer]: MARY ZAPATA ([id number]) [facility] ([facility]) [address] T3 [Mass/Vol]on 05-08-2024 Interpretation and review of laboratory results Normal [facility] T3, freeon 05-08-2024 Free T3 [Mass/Vol] 4.37 pg/mL 2.77 - 5. 27 pg/mL [facility] TESTOSTERONE, FREE/TOTAL BY SOCIAL MEDIA DESIGNER (SENDOUT)on 05-08-2024 SEX HORMONE BINDING GLOBULIN 63 nmol/L Normal 25-122 [facility] Comment on above: Result Comment: REFE RENCE INTERVAL: Sex Hormone Binding Globulin Access complete set of age- and/or gender-specific reference intervals for this test in the [facility] ([facility]). Performed By: #### L [id number], [id number] #### [facility] ([facility]) [address] [place] [phone] [facility] TESTOSTERONE BY SOCIAL MEDIA DESIGNER 20 ng/dL Normal 9-55 [facility] Comment on above: Result Comment: REFE RENCE INTERVAL: Testosterone by Director Advanced Females Premenopausal 9-55 ng/dL Postmenopausal 5-32 ng/dL INTERPRETIVE INFORMATION: Testosterone by Director Advanced Free or bioavailable testosterone measurements may provide supportive information. For individuals on testosterone-suppressing hormone therapies (e.g., antiandrogens or estrogens), refer to cisgender female reference intervals. For a complete set of all established reference intervals, refer to ltd.[facility]/Tests/Pub/8239405. This test was developed and its performance characteristics determined by [facility]. It has not been cleared or approved by the US Food and Drug Administration. This test was performed in a CLIA certified laboratory and is intended for clinical purposes. Performed By: #### L [id number], [id number] #### [facility] ([facility]) [address] [place] [address] TESTOSTERONE, FREE BY SOCIAL MEDIA DESIGNER 2.2 pg/mL Normal 1.3-9.2 [facility] Comment on above: Result Comment: REFE RENCE INTERVAL: Testosterone, Free by Director Advanced Females Postmenopausal: 0.6 - 3.8 pg/mL INTERPRETIVE INFORMATION: Testosterone, Free by Director Advanced Free testosterone concentration is calculated using total testosterone (measured by mass spectrometry) and the binding constant of testosterone and sex hormone-binding globulin (SHBG). For individuals on testosterone-suppressing hormone therapies (e.g., antiandrogens or estrogens), refer to cisgender female reference intervals. For a complete set of all established reference intervals, refer to [employer]/Tests/Pub/[id number]. This test was developed and its performance characteristics determined by [facility]. It has not been cleared or approved by the US Food and Drug Administration. This test was performed in a CLIA certified laboratory and is intended for clinical purposes. Performed By: [facility] [address] [place] [address] Geomorphologist: Martell Flores MD, PhD CLIA Number: [id number] Performed By: #### L [id number], [id number] #### [facility] ([facility]) [address] [place] [address] THYROID STIMULATING HORMONEo n 05-08-2024 THYROID STIMULATING HORMONE 1.508 uIU/mL Normal 0.465-4.680 [facility] Comment on above: Performed By: #### L [id number], [id number] #### Sales Representative [employer]: SANDRA PARRA ([id number]) [facility] ([facility] [address] [place] [address] TSHon 05-08-2024 TSH Qn 1.508 m[IU]/L [facility] h TSH Qnon 05-08-2024 Interpretation and review of laboratory results Normal [facility] UA DIP, URINE (POC)on 2023 BILIRUBIN UA (POCT) Negative Negative [facility] CLARITY UA (POCT) Cloudy [facility] COLOR UA (POCT) Yellow [facility] GLUCOSE UA (POCT) Negative Negative mg/dL [facility] Hemoglobin Ql (U) Large Abnormal Negative [facility] Interpretation and review of laboratory results Abnormal [facility] KETONE UA (POCT) Negative Negative mg/dL [facility] LEUKOCYTES UA (POCT) Large Abnormal Negative [facility] NITRITE UA (POCT) Negative Negative [facility] PH UA (POCT) 6.5 4.5 - 8.0 [facility] Protein Ql (U) 100 mg/dL Abnormal Negative [facility] SPECIFIC GRAVITY UA (POCT) 1.020 1.005 - 1.030 [facility] UROBILINOGEN UA (POCT) 0.2 Klaudia l E.U./dL [facility] Location:[facility], [address] [place] [address] POINT OF CARE [facility] US Abdomen Completeon 2017 US Abdomen Complete Patient Name: CARMEN YAN Ultrasound Exam Date/Time 07/16/2018 13:54:18 EST Exam US Abdomen Complete Ordering Physician ABDIRAHMAN RECINOS Accession Number [id number] CPT4 Codes 95186 () Reason For Exam pain of upper [...] Transcribed Date and Time: 07/17/2018 6:08 Normal [facility] PROGRESSon 11-08-2017 PROGRESS HNO ID: [id number]: Francoise Bobo: (none)Author Type: PhysicianType: Progress NotesFiled: [...] MG-0.02 MG (24) Rosario Granados MD Normal [facility] Vital Signs Date Time Vital Sign Value Performing Clinician Brenda sellers 04-10-2024 14:18-0400 Body height 165.1 cm Kalyn Murray APRN.CNP Work Phone: [facility] 04-10-2024 14:18-0400 Body mass index (BMI) [Ratio] 24.71 kg/m2 Kalyn Murray APRN.CNP Work Phone: [facility] 04-10-2024 14:18-0400 Body temperature 97.59 [degF] Kalyn Brigotti GRANULIZING MACHINE OPERATOR.[employer] Work Phone: [facility] 04-10-2024 14:18-0400 Body weight 67.35 kg Kalyn Brigotti GRANULIZING MACHINE OPERATOR.[employer] Work Phone: [facility] 04-10-2024 14:18-0400 Diastolic blood pressure 78 mm[Hg] Kalyn Brigotti GRANULIZING MACHINE OPERATOR.[employer] Work Phone: [facility] 04-10-2024 14:18-0400 Heart rate 84 /min Kalyn Brigotti GRANULIZING MACHINE OPERATOR.[employer] Work Phone: [facility] 04-10-2024 14:18-0400 Respiratory rate 18 /min Kalyn Brigotti GRANULIZING MACHINE OPERATOR.[employer] Work Phone: [facility] 04-10-2024 14:18-0400 SaO2% (BldA) [Mass fraction] 97 % Kalyn Brigotti GRANULIZING MACHINE OPERATOR.[employer] Work Phone: [facility] 04-10-2024 14:18-0400 Systolic blood pressure 120 mm[Hg] Kalyn Brigotti GRANULIZING MACHINE OPERATOR.[employer] Work Phone: [facility] 03-02-2022 16:35-0400 Body height 165.1 cm Francoise Granados MD Work Phone: [facility] 03-02-2022 16:35-0400 Body weight 73.03 kg Francoise Granados MD Work Phone: [facility] 03-02-2022 16:35-0400 Diastolic blood pressure 80 mm[Hg] Francoise Granados MD Work Phone: [facility] 03-02-2022 16:35-0400 Systolic blood pressure 112 mm[Hg] Francoise Granados MD Work Phone: [facility] Encounters Encounter Date Encounter Type Care Provider Facility Start: 06-18-2025 ambulatory Alexus Ontiveros Fa cility:[facility] Start: 05-08-2024 End: 08-07-2024 ambulatory [facility] Comment on above: Hypothyroidism, unsp ecified (Primary Dx); Premenstrual dysphoric disorder; Ovarian dysfunction, unspecified Start: 04-10-2024 End: 04-10-2024 Patient encounter procedure Kalyn Percy Murray APRN.CNP Work Phone: [facility] Comment on above: UTI symptoms (Primar y Dx) Start: 03-02-2022 End: 03-02-2022 Female genitalia finding Francoise Granados MD Work Phone: [facility] Start: 03-02-2022 End: 03-02-2022 Patient encounter procedure Francoise Granados MD Work Phone: [facility] Comment on above: Gynecologic exam nor mal (Primary Dx); Encounter for surveillance of contraceptive pills; Cervical cancer screening; Encounter for Pap smear of cervix with HPV DNA cotesting Start: 07-16-2018 Patient encounter procedure Abdirahman Recinos [facility] Procedures Date Procedure Procedure Detail Performing Clinician [...] for Adults (1 - 1-dose 75+ series) [facility] Start: 2036 Zoster Vaccines (1 o f 2) Zoster Vaccines (1 of 2) [facility] Start: 03-02-2027 Screening for malign ant neoplasm of cervix Cervical Cancer Screening [facility] Start: 02-24-2026 PAP TESTING PAP TESTING [facility] Start: 05-08-2025 Thyroid stimulating hormone measurement TSH Level [facility] Start: 04-28-2024 COVID-19 Vaccine ( season) COVID-19 Vaccine () [facility] Start: 04-28-2024 Influenza vaccination Influenza Vacc ine (#1) [facility] Start: 04-28-2023 Covid-19 Vaccine ( season) Covid-19 Vaccine () [facility] Start: 03-02-2023 Adult depression screening assessment DEPRESSION SCREENING [facility] Start: 04-28-2022 Influenza vaccination INFLUENZA (#1) [facility] Start: 2016 HPV TESTING HPV TESTING [facility] Start: 2016 Screening for malign ant neoplasm of cervix [facility] Start: 2007 Screening for malign ant neoplasm of cervix Pap Smear [facility] Start: 2005 DTaP/Tdap/Td Vaccine s (1 - Tdap) DTaP/Tdap/Td Vaccines (1 - Tdap) [facility] Start: 2005 Hepatitis B Vaccine (1 of 3 - 19+ 3-dose series) Hepatitis B Vaccine (1 of 3 - 19+ 3-dose series) [facility] Start: 2005 Hepatitis B Vaccines (1 of 3 - 19+ 3-dose series) Hepatitis B Vaccines (1 of 3 - 19+ 3-dose series) [facility] Start: 2005 Urine microalbumin profile [facility] Start: 2004 Anxiety Screening Anxiety Screening [facility] Start: 2004 Depression Screening Depression Scre [facility] Start: 2004 HEPATITIS C SCREENING HEPATITIS C [facility] Start: 2004 Hepatitis C screening Hepatitis C [facility] Start: 2004 HIV SCREENING HIV SCREENING [facility] Start: 2004 HIV screening HIV Screening [facility] Start: 1999 Varicella vaccination Varicell a Vaccines (1 of 2 - 13+ 2-dose series) [facility] Start: 1998 Depression Monitoring Depression Mon itoring [facility] Start: 1987 MMR Vaccines (1 of 1 - Standard series) MMR Vaccines (1 of 1 - Standard series) [facility] Start: 02-03-1987 COVID-19 VACCINE (#1) COVID-19 VACCI NE (#1) [facility] Start: 1986 HIV screening HIV Screening [facility] timbo Bacteria identified in Urine by Culture URINE CULTURE Microbiology Routine UTI symptoms Ordered: 04/10/2024 [facility] Work Phone: Comment on above: Ordered: 04/10/2024 HUMAN PAPILLOMA VIRU S, MRNA HUMAN PAPILLOMA VIRUS, MRNA Lab Routine Encounter for Pap smear of cervix with HPV DNA cotesting Ordered: 03/02/2022 [employer] [facility] Work Phone: Comment on above: Ordered: 03/02/2022 OUTSIDE PROCEDURE SCAN OUTSIDE P ROCEDURE SCAN Procedures Ordered: 05/08/2024 [facility] Comment on above: Ordered: 05/08/2024 PAP REFLEX HPV MRNA WHEN ASCUS PAP REFLEX HPV MRNA WHEN ASCUS Lab Routine Gynecologic exam normal Cervical cancer screening Ordered: 03/02/2022 [employer] [facility] Work Phone: Comment on above: Ordered: 03/02/2022 [facility] Immunizations Immunization Date Immunization Notes Care Provider [facility] 08-19-2017 Influenza, injectabl e, Madin Cailin Canine Kidney, preservative free, quadrivalent Francoise Granados MD Work Phone: [facility] 08-19-2017 influenza virus vacc ine, unspecified formulation Kalyn Murray APRN.CNP Work Phone: [facility] Payers Date Payer Category Payer Self-pay 2023 [facility] - [facility] [id number] 2023 Unknown [id number] 2023 Unknown 1986 Unknown [id number] Unknown [id number] Social History Date Type Detail Facility Start: 11-07-2017 End: 04-10-2024 Tobacco smoking status NHIS Never smoked tobacco [facility] Start: 11-07-2017 End: 04-10-2024 Tobacco use and exposure Smokeless tobacco non-user [facility] Start: 1985 Sex Assigned At Not on file C [facility] Start: 02-20-2022 End: 03-02-2022 Exposure to SARS-CoV-2 (event) Not sure [facility] Start: 09-24-2022 End: 04-10-2024 History of Social function [facility] Start: 09-24-2022 End: 04-10-2024 Tobacco use panel [facility] Adult Depression Screening Assessment 0 [facility] Tobacco smoking stat us [facility] Tobacco smoking consumption unknown [facility] Start: 03-28-2022 Sex Female (finding) [facility] Instructions 04-10-2024 Patient Instructions Note Date & Type Note Facility 04-10-2024 Instructions Kalyn uMrray APRN.IAN - 04/10/2024 2:37 PM EDT - [...] or concerning symptoms documented in this encounter [facility] History of Present illness Narrative 04-10-2024 Kalyn [...] Kalyn Murray APRN.IAN documented in this encounter [facility] Progress note 03-02-2022 Note Date & Type Note Facility 03-02-2022 Note HNO ID: [id number] Author: Francoise Granados MD Service: ? Author [...] No history of dysuria, frequency or incontinence MANUAL WRITER: Negative for abnormal vaginal bleeding, abnormal vaginal [...] HUMAN PAPILLOMA VIRUS, MRNA MD Alexus Marie [facility] History of Present illness Narrative 03-02-2022 Francoise [...] No history of dysuria, frequency or incontinence MANUAL WRITER: Negative for abnormal vaginal bleeding, abnormal vaginal [...] MD Alexus Marie documented in this encounter [facility] Evaluation note Note Date & Type Note Facility Evaluation note Diagnosis Gynecologic exam normal- Primary Encounter for surveillance of contraceptive pills Surveillance of previously prescribed contraceptive pill Cervical cancer screening Screening for malignant neoplasm of the cervix Encounter for Pap smear of cervix with HPV DNA cotesting documented in this encounter [facility] Evaluation note Note Date & Type Note Facility Evaluation note Diagnosis UTI symptoms- Primary Other symptoms involving urinary system documented in this encounter [facility] Evaluation note Note Date & Type Note Facility Evaluation note Diagnosis Hypothyroidism, unspecified- Primary Premenstrual dysphoric disorder Premenstrual tension syndromes Ovarian dysfunction, unspecified documented in this encounter [facility] Summary Purpose Family History No Family History Records FoundNo Family History Records FoundNo Family History Records FoundNo Family History Records FoundNo Family History Records Found Advance Directives No Advanced Directives Records FoundNo Advanced Directives Records FoundNo Advanced Directives Records FoundNo Advanced Directives Records FoundNo Advanced Directives Records Found Additional Source Comments INFORMATION SOURCE (unrecogn ized section and content) DATE CREATED AUTHOR 02/16/2018 [facility] DATE CREATED AUTHOR AUTHOR'S ORGANIZ ATION 08/06/2018 [facility] DATE CREATED AUTHOR AUTHOR'S ORGANIZ ATION 03/03/2022 [facility] DATE CREATED AUTHOR AUTHOR'S ORGANIZ ATION 05/16/2024 [facility] DATE CREATED AUTHOR AUTHOR'S ORGANIZ ATION 06/13/2025 [facility] Source Comments (unrecognize d section and content) In the event this informatio n is protected by the Federal Confidentiality of Alcohol and Drug Abuse Patient Records regulations: The Federal rules restrict any use of the information to criminally investigate or prosecute any alcohol or drug abuse patient.[facility] the event this information is protected by the Federal Confidentiality of Alcohol and Drug Abuse Patient Records regulations: The Federal rules restrict any use of the information to criminally investigate or prosecute any alcohol or drug abuse patient.[facility] Reason for Visit (unrecogniz ed section and content) 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 UTI Going on for 4 days, frequency,cloudy, light pink when wiping, right lower back pain that travels to the abdomen that's achy, pain level 4/10, has increased fluids with electrolytes, LMS was 03/21/24 Care Teams (unrecognized sec tion and content) Chief Yeoman Relationship Specialty Start Date End Date Abdirahman Recinos [address] [place] [address] PCP - General Internal Medicine 11/07/17 Chief Yeoman Relationship Specialty Start Date End Date Abdirahman Recinos [address] [place], [place] [id number] PCP - General Internal Medicine 11/07/17 Chief Yeoman Relationship Specialty Start Date End Date Abdirahman Recinos MD [address] [facility] [address] [place] [id number] PCP - General 05/01/17 FOR RECORDS PERTAINING [...] BE BASED ON THE PRIMARY CLINICAL RECORDS. [facility]. provides no warranty or guarantee of the accuracy or completeness of information in this document.
[2025-06-25 17:08] LABS: HPV APTIMA, High Risk Negative (Negative)
== END | disposition home or self-care (01) ==
LOC: LABSPEC 16:03
PROVIDERS: Visit Provider Obstetrics & Gynecology
DX: Z12.4 Encounter for screening for malignant neoplasm of cervix (principal)
CPT/HCPCS: 87624; 88175; G0145

== ENCOUNTER → 2025-06-26 | Outpatient (CLI) | payer BC, SELFPAY ==
[2025-06-26 12:31] LABS: Hematocrit 41.1 % (37-47); Hemoglobin 13.7 g/dL (12.0-15.0); Immature Granulocytes Count 0.010 X10^3/uL (0.0-0.0); Mean Corp Hgb Conc 33.3 g/dL (32-36); Mean Corpuscular Volume 96.7 fL (81-99); Mean Platelet Vol. 10.1 fl (6.2-12.0); NRBC Flagged by Analyzer 0 % (0-5); Platelet Count 241 K/mm3 (150-450); RBC Distribution Width CV 11.3 % (11.6-14.6); RBC Distribution Width SD 39.9 fl (35.1-43.9); Red Blood Count 4.25 M/mm3 (4.2-5.4); White Blood Count 5.0 K/mm3 (4.4-11.0)
[2025-06-26 13:15] LABS: Cholesterol 157 mg/dL (<=200); Glucose 94 mg/dL (70-99); Low Density Lipoprotein Calc. 72 mg/dL; Triglycerides 43 mg/dL; Very Low Density Lipoprotein 9 mg/dL (5-40); Vitamin D,25 Hydroxy 52.0 ng/mL (30-100); cholesterol:hdl ratio screen 2.09
== END | disposition home or self-care (01) ==
PROVIDERS: Visit Provider Obstetrics & Gynecology
DX: Z13.1 Encounter for screening for diabetes mellitus (principal); F32.81 Premenstrual dysphoric disorder; Z13.220 Encounter for screening for lipoid disorders
CPT/HCPCS: 36415; 80061; 82306; 82947; 84443; 85025